=== PATIENT | male | born 1990 | race Caucasian/White ===

== ENCOUNTER 2020-12-22 09:12 | Emergency (ER) | payer MEDICAID ==
[~2020-12-22] VITALS: Ht 180.3 cm; Wt 102.1 kg
[2020-12-22 09:19] VITALS: BP 113/72
[2020-12-22] MEDS: diazePAM 5 MG TAB PO ONE (09:48)
[2020-12-22] MEDS: KETOROLAC 30 MG/ML VIAL IM ONE (09:49)
[2020-12-22] MEDS ORDERED: NAPR-54 PO (10:42)
[2020-12-22] MEDS ORDERED: DIAZ5TAB7 PO (10:42)
[2020-12-22 10:55] VITALS: BP 113/72
== END 2020-12-22 10:55 | disposition home or self-care (01) ==
LOC: MED 09:12
DX: M54.5 Low back pain (principal)
CPT/HCPCS: 72100; 81002; 96372; 99283; J1885